=== PATIENT | female | born 1950 | race Caucasian/White ===

== ENCOUNTER 2021-12-15 20:58 | Emergency (ER) | payer MEDICARE, OTHER ==
[2021-12-15] MEDS: Nitroglycerin 0.3 MG Tab.SL SL PRN ×3 (21:30→21:41)
[2021-12-15] MEDS ORDERED: Aspirin 81 MG Tab.Chew PO ONE (22:08)
[2021-12-15] MEDS ORDERED: Cefepime 2 GM in Sodium Chloride 0.9% 50 ML IV ONE (22:08)
[2021-12-15] MEDS ORDERED: Aspirin 81 MG Tab.Chew ONE (22:19)
[2021-12-15] MEDS ORDERED: Heparin Sodium/D5W 25,000 UNITS/500 ML BAG IV SCH (22:30)
[2021-12-15] MEDS ORDERED: Sodium Chloride 0.9% 100 ML IV ONE (23:29)
[2021-12-15] MEDS ORDERED: Iopamidol 755 Mg/ML 100 ML Bottle IVPUSH ONE (23:29)
== END 2021-12-16 ==
LOC: JD.ED 20:58
DX: I21.4 Non-ST elevation (NSTEMI) myocardial infarction (principal); J18.9 Pneumonia, unspecified organism; I21.9 Acute myocardial infarction, unspecified; I10 Essential (primary) hypertension; Z88.8 Allergy status to other drugs, medicaments and biological substances; Z79.899 Other long term (current) drug therapy; Z87.891 Personal history of nicotine dependence; Z20.822 Contact with and (suspected) exposure to COVID-19
CPT/HCPCS: 36415; 71045; 71275; 80053; 83735; 83880; 84484; 85007; 85027; 85610; 87040; 93005; 96365; 96366; 96368; 99291; A9270; J0692; J1644; Q9967; U0002